=== PATIENT | male | born 1975 | race Caucasian/White ===

== ENCOUNTER 2018-11-06 14:54 | Observation (INO) | payer OTHER ==
[~2018-11-06] VITALS: Ht 172.7 cm; Wt 127.6 kg
[~2018-11-06 14:54] MED LIST: ASPI325 PO; CEPH500 PO; HYDACE10B PO; HYDACE5 PO; IBUP400 PO; NEOCOLOTSU OT
[2018-11-06 18:05] LABS: BASOPHILS ABSOLUTE AUTO 0.05 K/mm3 (0.00-0.23); BASOPHILS PERCENT AUTO 0 % (0-2); EOSINOPHILS ABSOLUTE AUTO 0.12 K/mm3 (0.00-0.68); EOSINOPHILS PERCENT AUTO 1 % (0-6); Hematocrit 47.4 % (37.0-53.0); Hemoglobin 15.9 g/dL (13.5-17.5); IMMATURE GRAN ABSOLUTE AUTO 0.07 K/mm3 (0.00-0.10); IMMATURE GRAN PERCENT AUTO 0 % (0-1); LYMPHOCYTES ABSOLUTE AUTO 2.99 K/mm3 (0.84-5.20); LYMPHOCYTES PERCENT AUTO 18 % (21-46); MONOCYTES ABSOLUTE AUTO 0.85 K/mm3 (0.16-1.47); MONOCYTES PERCENT AUTO 5 % (4-13); Mean Corpuscular HGB 30.2 pg (26.0-34.0); Mean Corpuscular HGB Conc 33.5 g/dL (31.5-36.5); Mean Corpuscular Volume 90 fL (80-100); Mean Platelet Volume 11.3 fL (9.1-12.4); NEUTROPHILS ABSOLUTE AUTO 12.21 K/mm3 (1.96-9.15); NEUTROPHILS PERCENT AUTO 75 % (41-73); Platelet Count 303 K/mm3 (150-400); RDW Standard Deviation 42.2 fL (35.1-46.3); Red Blood Cell Count 5.27 M/mm3 (4.30-5.90); White Blood Cell Count 16.29 K/mm3 (4.00-11.30)
[2018-11-06 18:21] LABS: Alanine Aminotransfer (ALT/SGP 40 U/L (12-78); Albumin, Blood 4.1 g/dL (3.4-5.0); Albumin/Globulin Ratio 1.2 (0.8-1.8); Alk Phos 123 U/L (50-136); Anion Gap 5 mmol/L (6-16); Aspartate Aminotrans (AST/SGOT 21 U/L (12-37); Bilirubin, Total 0.5 mg/dL (0.1-1.0); Blood Urea Nitrogen 13 mg/dL (8-24); Bun/Creatinine Ratio 13.7 (12.0-20.0); CO2, Blood 32 mmol/L (21-32); Calcium, Blood 9.1 mg/dL (8.5-10.1); Chloride, Blood 103 mmol/L (98-108); Creatinine, Blood 0.95 mg/dL (0.60-1.20); Globulin, Blood 3.5 g/dL (2.2-4.0); Glomerular Filtration Rate >60 (60-); Glucose, Blood 101 mg/dL (70-99); Potassium, Blood 3.9 mmol/L (3.5-5.5); Sodium, Blood 140 mmol/L (136-145); Total Protein, Blood 7.6 g/dL (6.4-8.2); Troponin I 0.093 ng/mL (0.000-0.040)
[2018-11-06] MEDS ORDERED: LOSARTAN-HCTZ1 EACH PO (19:39)
[2018-11-06] MEDS ORDERED: ALBU90OI61 INH (19:40)
[2018-11-07 05:16] LABS: BASOPHILS ABSOLUTE AUTO 0.07 K/mm3 (0.00-0.23); BASOPHILS PERCENT AUTO 1 % (0-2); EOSINOPHILS ABSOLUTE AUTO 0.14 K/mm3 (0.00-0.68); EOSINOPHILS PERCENT AUTO 1 % (0-6); Hematocrit 46.2 % (37.0-53.0); Hemoglobin 15.8 g/dL (13.5-17.5); IMMATURE GRAN ABSOLUTE AUTO 0.08 K/mm3 (0.00-0.10); IMMATURE GRAN PERCENT AUTO 1 % (0-1); LYMPHOCYTES ABSOLUTE AUTO 2.79 K/mm3 (0.84-5.20); LYMPHOCYTES PERCENT AUTO 18 % (21-46); MONOCYTES ABSOLUTE AUTO 0.86 K/mm3 (0.16-1.47); MONOCYTES PERCENT AUTO 6 % (4-13); Mean Corpuscular HGB 30.5 pg (26.0-34.0); Mean Corpuscular HGB Conc 34.2 g/dL (31.5-36.5); Mean Corpuscular Volume 89 fL (80-100); Mean Platelet Volume 10.1 fL (9.1-12.4); NEUTROPHILS PERCENT AUTO 74 % (41-73); Platelet Count 262 K/mm3 (150-400); RDW Standard Deviation 42.5 fL (35.1-46.3); Red Blood Cell Count 5.18 M/mm3 (4.30-5.90); White Blood Cell Count 15.14 K/mm3 (4.00-11.30)
[2018-11-07 05:43] LABS: CHOL/HDL RATIO 6.2; Cholesterol 191 mg/dL (50-200); HDL Cholesterol 31 mg/dL (>39); LDL/HDL RATIO 4.3; Low Density Lipoprotein Chol 133 mg/dL (0-110); Triglycerides 136 mg/dL (30-160); Very Low Density Lipoprot Chol 27 mg/dL (6-32)
--- NOTE | 2018-11-07 06:47 | NUR ---
SHIFT SUMMARY PATIENT IS ALERT AND ORIENTED. CAME TO ROOM VIA WHEEL CHAIR FROM ER. PATIENT IS ON ROOM AIR, DENIES CHEST PAIN OR SHORTNESS OF BREATH. PATIENT HAS A HOARSENESS/WHEEZE TO VOICE. TROPONINS HAVE INCREASED. HOSPITALIST INFORMED. TELE ON, SINUS RHYTHM IN THE 70'S. PATIENT REQUESTED SOMETHING FOR INSOMNIA, BENADRYL GIVEN ORDERED. PRN HYDRALAZINE GIVEN, BLOOD PRESSURES STILL ELEVATED-NOTIFIED HOSPITALIST. PATIENT STILL CONCERNED AND COMPLAINING OF SORE THROAT. NOTES STATE PATIENT WILL NEED A FOLLOW UP SLEEP STUDY, PATIENT STATES HE SNORES AND STATES HE STOPS BREATHING THROUGHOUT THE NIGHT. PATIENT STATES HE IS WILLING TO TRY C-PAP WHILE IN THE HOSPITAL. NO OTHER CHANGES THROUGHOUT THE NIGHT. PATIENT STATES HE DID GET SOME SLEEP AFTER THE BENADRYL.
[2018-11-07 15:35] LABS: Adenovirus Not Detected (NOT DETECT); Bordetella pertussis Not Detected (NOT DETECT); Chlamydophila pneumoniae Not Detected (NOT DETECT); Coronavirus 229E Not Detected (NOT DETECT); Coronavirus HKU1 Not Detected (NOT DETECT); Coronavirus NL63 Not Detected (NOT DETECT); Coronavirus OC43 Not Detected (NOT DETECT); Human Metapneumovirus Not Detected (NOT DETECT); Human Rhinovirus/Enterovirus Not Detected (NOT DETECT); Influenza A Not Detected (NOT DETECT); Influenza A/2009-H1 Not Detected (NOT DETECT); Influenza A/H1 Not Detected (NOT DETECT); Influenza A/H3 Not Detected (NOT DETECT); Influenza B Not Detected (NOT DETECT); Mycoplasma pneumoniae Not Detected (NOT DETECT); Parainfluenza Virus 1 Not Detected (NOT DETECT); Parainfluenza Virus 2 Not Detected (NOT DETECT); Parainfluenza Virus 3 Not Detected (NOT DETECT); Parainfluenza Virus 4 Not Detected (NOT DETECT); Respiratory Syncytial Virus Not Detected (NOT DETECT)
--- NOTE | 2018-11-07 16:14 | NUR ---
SUMMARY- PT C/O CHEST PRESURE AND "HEAVINESS" IN HIS UPPER CHEST THIS AM. PT HAS A SORE THROAT AND HOARSE VOICE, BRONCHIAL EXP WHEEZE UPPER. DR CUMMINS NOTIFIED OF HIGH BP AND CHEST PRESURE THIS AM ANT THAT HYDRALAZINE GIVEN. ALSO GIVEN TYLENOL FOR STABBING HEADACHE IN R EYE AND FACIAL PAIN, WITH MOD IMPROVEMENT. ORETIC ADMINISTERED AND AGAIN HYDRELAZINE BUT BP REMAINS HIGH. SPOKE AGAIN WITH DR CUMMINS 1500 AND 1615 AND MADE AWARE OF HIGH BP. ORDER FOR ADDITIONAL PM DOSE OF LOSARTIN, AND A DOSE OF ATIVAN. PT WANTS TO GO HOME, DOESN'T LIKE THE HOSPITAL AND QUESTIONS WHAT WE ARE ABLE TO DO FOR HIM HERE. WORRIED ABOUT COST AND WHAT INSURANCE WILL COVER. PT HAD HIGH BP AND WENT OUTSIDE AT 1340 BEFORE RN COULD GIVE BP MED- DELAYED ONE HOUR. PT HAS BEEN NON COMPLIANT WITH TAKING BP MEDS AT HOME ADMITTIDLY BY HIM- PRESCRIBED BY [facility] ONE MONTH AGO. STATES SINCE HIS STAY HE IS MOTIVATED TO FIND A PCP AND STOP SMOKING CHANGE DIET AND TAKE BP MEDS. HAS BEEN IN DENIAL AND IS NOW WILLING TO MAKE SOME CHANGES.
--- NOTE | 2018-11-08 06:15 | NUR ---
SHIFT SUMMARY PATIENT IS ALERT AND ORIENTED, USES CALL LIGHT APPROPRIATELY. PATIENT EDUCATED ON THE IMPORTANCE OF CUTTING BACK AND QUITTING SMOKING. PATIENT EXPRESSED WANTING TO QUIT AND CHANGING HIS DIET. PATIENT GIVEN PRN BP MEDICATION. PATIENT ON TELE. NO NEW CHANGES NOTED.
--- NOTE | 2018-11-08 17:15 | NUR ---
SHIFT SUMMARY A AND [employer] INDEPENDENT. OUT TO SMOKE SEVERAL TIMES THIS SHIFT. HTN NOTED THIS A.M. IMPROVED WITH NEW MEDS ORDERED TODAY. SPOUSE AT BEDSIDE FOR MOST OF DAY. DENIES ANY PAIN OR DISTRESS AT THIS TIME. EATING AND DRINKING WELL. POSSIBLE DISCHARGE IN A.M.
[2018-11-09 05:50] LABS: Albumin, Blood 3.9 g/dL (3.4-5.0); Anion Gap 6 mmol/L (6-16); Blood Urea Nitrogen 13 mg/dL (8-24); Bun/Creatinine Ratio 14.1 (12.0-20.0); CO2, Blood 29 mmol/L (21-32); Calcium, Blood 8.8 mg/dL (8.5-10.1); Chloride, Blood 105 mmol/L (98-108); Creatinine, Blood 0.92 mg/dL (0.60-1.20); Glomerular Filtration Rate >60 (60-); Glucose, Blood 108 mg/dL (70-99); Phosphorus, Blood 4.3 mg/dL (2.5-4.9); Potassium, Blood 3.9 mmol/L (3.5-5.5); Sodium, Blood 140 mmol/L (136-145)
[2018-11-09 06:22] LABS: BASOPHILS ABSOLUTE AUTO 0.05 K/mm3 (0.00-0.23); BASOPHILS PERCENT AUTO 0 % (0-2); EOSINOPHILS ABSOLUTE AUTO 0.14 K/mm3 (0.00-0.68); EOSINOPHILS PERCENT AUTO 1 % (0-6); Hematocrit 46.5 % (37.0-53.0); Hemoglobin 15.5 g/dL (13.5-17.5); IMMATURE GRAN ABSOLUTE AUTO 0.07 K/mm3 (0.00-0.10); IMMATURE GRAN PERCENT AUTO 1 % (0-1); LYMPHOCYTES ABSOLUTE AUTO 2.81 K/mm3 (0.84-5.20); LYMPHOCYTES PERCENT AUTO 20 % (21-46); MONOCYTES ABSOLUTE AUTO 0.86 K/mm3 (0.16-1.47); MONOCYTES PERCENT AUTO 6 % (4-13); Mean Corpuscular HGB 30.2 pg (26.0-34.0); Mean Corpuscular HGB Conc 33.3 g/dL (31.5-36.5); Mean Corpuscular Volume 91 fL (80-100); Mean Platelet Volume 9.8 fL (9.1-12.4); NEUTROPHILS ABSOLUTE AUTO 10.14 K/mm3 (1.96-9.15); NEUTROPHILS PERCENT AUTO 72 % (41-73); Platelet Count 246 K/mm3 (150-400); RDW Coefficient Variation 13.1 % (11.7-14.2); RDW Standard Deviation 43.5 fL (35.1-46.3); Red Blood Cell Count 5.13 M/mm3 (4.30-5.90); White Blood Cell Count 14.07 K/mm3 (4.00-11.30)
--- NOTE | 2018-11-09 06:45 | NUR ---
NOC SHIFT SUMMARY PT PLEASANT AND COOPERATIVE WITH CARE. ON TELE LAST CHECK SR IN THE 80'S. HE DID GO OUTSIDE TO SMOKE LAST NIGHT. HE WAS STRONGLY ADVISED AGAINST THIS BY THIS RN. ON RETURNING HE WAS VERY WHEEZY IN HIS BREATHING. REQUESTED BREATHING TREATMENT WHICH DID IMPROVE THIS. BP CONTINUES TO BE HIGH. PT PRESENTLY SLEEPING AND APPEARS IN NO ACUTE DISTRESS. WILL CONTINUE TO MONITOR.
[2018-11-09] MEDS ORDERED: ASPI81CH PO (15:15)
[2018-11-09] MEDS ORDERED: CEPACOL SORE T1 EACH MM (15:16)
[2018-11-09] MEDS ORDERED: HYDRA25 PO (15:16)
[2018-11-09] MEDS ORDERED: HYDCHL25 PO (15:17)
[2018-11-09] MEDS ORDERED: LOSA50 PO (15:18)
--- NOTE | 2018-11-09 17:05 | NUR ---
PATIENT DCD AT APPROX 1620 TODAY. PATIENT REQUESTED TO SELF AMBULATE OUT OF MEDICAL FLOOR WITH AT SIDE. ALL DISCHARGE ORDERS REVIEWED WITH PATIENT AND AND BOTH VERBALIZED AN UNDERSTANDING. MEDICATION ORDERS FAXED TO [facility] PER PATIENT REQUEST. EDUCATION PROVIDED TO PATIENT AND ON NEW MEDICATIONS. PATIENT TO FOLLOW UP WITH [facility] FOR PCP APPT. IV REMOVED WITH NO ISSUE. ALL BELONGINGS SENT WITH PATIENT.
== END 2018-11-09 16:20 | disposition home or self-care (01) ==
LOC: ER 14:54 → MEDS 14:55
PROVIDERS: Emergency Medicine; Internal Medicine; ADMIT Hospitalist
DX: I16.0 Hypertensive urgency (principal); J31.2 Chronic pharyngitis; D72.829 Elevated white blood cell count, unspecified; E87.70 Fluid overload, unspecified; R77.8 Other specified abnormalities of plasma proteins; I10 Essential (primary) hypertension; J44.9 Chronic obstructive pulmonary disease, unspecified; E78.5 Hyperlipidemia, unspecified; E66.01 Morbid (severe) obesity due to excess calories; F17.210 Nicotine dependence, cigarettes, uncomplicated; Z79.899 Other long term (current) drug therapy
CPT/HCPCS: 36415; 71046; 80053; 80061; 80069; 83036; 83880; 84145; 84484; 85025; 87081; 87430; 87486; 87581; 87633; 87798; 93005; 93010; 93306; 94640; 94660; 94760; 94762; 96372; 96374; 96376; 99285-25; A9270; G0378; J0360; J1650; Q0163

== ENCOUNTER → 2020-02-15 | Outpatient (CLI) | payer OTHER ==
[~2020-02-15] MED LIST changes: +ALBU90OI61 INH; +ASPI81CH PO; +CEPACOL SORE T1 EACH MM; +HYDCHL25 PO; +HYDRA25 PO; +LOSA50 PO; +LOSARTAN-HCTZ1 EACH PO
== END ==
LOC: LAB SHORT 16:33 → LAB EV 16:33
DX: J02.9 Acute pharyngitis, unspecified (principal)
CPT/HCPCS: 87081

== ENCOUNTER 2020-07-28 08:45 | Emergency (ER) | payer OTHER ==
[~2020-07-28] VITALS: Ht 172.7 cm; Wt 136.1 kg
[2020-07-28] MEDS ORDERED: AMLO5 PO (08:59)
[2020-07-28] MEDS ORDERED: Norco 5-325 Ta1 EACH PO (10:11)
== END 2020-07-28 10:19 | disposition home or self-care (01) ==
LOC: ER 08:45
DX: S52.501A Unspecified fracture of the lower end of right radius, initial encounter for closed fracture (principal); I10 Essential (primary) hypertension; J44.9 Chronic obstructive pulmonary disease, unspecified; F17.210 Nicotine dependence, cigarettes, uncomplicated; Z79.899 Other long term (current) drug therapy; W01.0XXA Fall on same level from slipping, tripping and stumbling without subsequent striking against object, initial encounter
CPT/HCPCS: 29125; 73110; 99283-25; A9270

== ENCOUNTER 2024-03-01 06:36 | Emergency (ER) | payer OTHER ==
[~2024-03-01] VITALS: Ht 172.7 cm; Wt 145.2 kg
[~2024-03-01 06:36] MED LIST changes: +AMLO5 PO; +Norco 5-325 Ta1 EACH PO
[2024-03-01 07:14] VITALS: BP 136/96
[2024-03-01] MEDS ORDERED: NAPR500 PO (07:52)
== END 2024-03-01 08:36 ==
LOC: ER 06:36
DX: M72.2 Plantar fascial fibromatosis (principal); I11.0 Hypertensive heart disease with heart failure; I50.9 Heart failure, unspecified; J44.9 Chronic obstructive pulmonary disease, unspecified; F17.210 Nicotine dependence, cigarettes, uncomplicated; Z79.899 Other long term (current) drug therapy
CPT/HCPCS: 73630; 99283-25